=== PATIENT | female | born 1995 | race Two or more races ===

== ENCOUNTER 2016-05-12 20:30 | Emergency (ER) | payer OTHER ==
[2016-05-12] MEDS ORDERED: diphenhydrAMINE 50 MG/ML SDV IVPUSH ONE (20:42)
[2016-05-12] MEDS ORDERED: EPINEPHrine 1:1000 1 MG/ML SDV IM ONE (20:42)
[2016-05-12] MEDS ORDERED: Sodium Chloride 0.9% 10 ML Syringe FLUSH PRN (20:42)
[2016-05-12] MEDS ORDERED: methylPREDNISolone Sodium Succinate 40 MG/1 ML SDV IVPUSH ONE (20:43)
--- NOTE | 2016-05-12 20:47 | EDM.PDOC ---
ED HPI Allergic Reaction - General Chief Complaint: Allergic Reaction Stated Complaint: ALLERGIC REACTION HIVES KNOT IN THROAT Time Seen by Provider: 05/12/16 20:35 Source: Reports: Patient, RN notes reviewed History Limitations: Reports: No limitations - History of Present Illness INITIAL COMMENTS - FREE TEXT/NARRATIVE: Brought in by boyfriend Chief complaint Allergic reaction HPI 20-year-old female with history. Allergies, but now her was eating [place] food , onset of some hives on her arms and the feeling of a lump in her throat, concerned that she may be having allergic reaction. Her last exposure to pay about her was several years ago. Has had to stay overnight for allergic reaction to the hospital in the past. Does not have EpiPen Did take Benadryl children's orally prior to arrival. No hoarseness No cough no wheezing No recent infection or cold - Related Data Allergies/ADRs: Allergies Allergy/AdvReac Type Severity Reaction Status Date / Time amoxicillin Allergy Hives Verified 09/15/15 16:53 peanut Allergy Hives Verified 05/12/16 20:37 Penicillins Allergy Hives Verified 09/15/15 16:53 Home Meds: Home Meds Albuterol [Proair HFA] 2 puff INH ASDIRECTED PRN 03/06/14 [History] Past Medical History - Past Health History Medical/Surgical History: Denies Medical/Surgical History Respiratory History: Reports: Asthma Musculoskeletal History: Reports: Fracture - Past Surgical History HEENT Surgical History: Reports: Tonsillectomy Other HEENT Surgeries/Procedures: plactic surgery to face d/t dog bite Social & Family History - Family History Family Medical History: Unobtainable - Tobacco Use Smoking Status *Q: Light Tobacco Smoker Years of Tobacco use: 5 Packs/Tins Daily: 0.5 Second Hand Smoke Exposure: Yes - Alcohol Use Days Per Week of Alcohol Use: 1 Number of Drinks Per Day: 2 Total Drinks Per Week: 2 - Recreational Drug Use Recreational Drug Use: No Drug Use in Last 12 Months: Yes Recreational Drug Type: Reports: Methamphetamine, Xanax Recreational Drug Use Frequency: Daily Recreational Drug Last Use: 9 months ago ED ROS ALLERGIC REACTION - Review of Systems Review Of Systems: See Below Constitutional: Reports: no symptoms HEENT: Reports: Other (Lump in throat feeling). Denies: Ear pain, Rhinitis, Throat pain Respiratory: Denies: Shortness of Breath, Wheezing, Cough Cardiovascular: Reports: No symptoms Endocrine: Reports: no symptoms GI/Abdominal: Reports: No symptoms : Reports: no symptoms Skin: Reports: urticaria Neurological: Reports: No Symptoms Psychiatric: Reports: No symptoms Immunologic: Reports: food allergy (Peanuts and peanut butter) ED EXAM GENERAL NO PERIP PULSE - Physical Exam Exam: See Below Exam Limited By: No limitations General Appearance: alert, anxious, mild distress, other (Mild tachycardia otherwise vital signs normalNo difficulty speaking) Eye Exam: bilateral eye: normal inspection Ears: normal external exam, normal canal, hearing grossly normal, normal TMs Nose: normal inspection, normal mucosa Throat/Mouth: Normal inspection, Normal lips, Normal teeth, Normal gums, Normal oropharynx, Normal voice Head: atraumatic, normocephalic Neck: normal inspection, supple, non-tender, full range of motion. No: lymphadenopathy (R), lymphadenopathy (L) Respiratory/Chest: no respiratory distress, lungs clear, normal breath sounds, no accessory muscle use, chest non-tender. No: rhonchi, wheezing Cardiovascular: normal peripheral pulses, regular rate, rhythm, tachycardia GI/Abdominal: normal bowel sounds, soft, non tender Extremities: normal inspection Neurological: alert, oriented, no motor/sensory deficits Skin Exam: Warm, Dry, Normal color, Other (A few scattered urticarial-like lesions on the upper extremities) Lymphatic: no adenopathy Course - Vital Signs Last Recorded V/S: Last Vital Signs Temp 37.0 C 05/12/16 20:36 Pulse 91 05/12/16 21:44 Resp 18 05/12/16 20:36 BP 108/62 05/12/16 21:44 Pulse Ox 96 05/12/16 21:44 - Orders/Labs/Meds Orders: Active Orders 24 hr Category Date Time Status Sodium Chloride 0.9% [Saline Flush] Med 05/12/16 20:42 Active 10 ml FLUSH ASDIRECTED PRN Saline Lock Insert [OM.PC] Stat Oth 05/12/16 20:42 Ordered Medication Orders Sodium Chloride (Saline Flush) 10 ml FLUSH ASDIRECTED PRN PRN Reason: Keep Vein Open Last Admin: 05/12/16 21:01 Dose: 10 ml Meds: Medications Generic Name Dose Route Start Last Admin Trade Name Freq PRN Reason Stop Dose Admin Sodium Chloride 10 ml 05/12/16 20:42 05/12/16 21:01 Saline Flush FLUSH 10 ml ASDIRECTED PRN Administration Keep Vein Open Discontinued Medications Generic Name Dose Route Start Last Admin Trade Name Wilbert PRN Reason Stop Dose Admin Diphenhydramine HCl 50 mg 05/12/16 20:42 05/12/16 21:06 Benadryl IVPUSH 05/12/16 20:43 50 mg ONETIME ONE Administration Epinephrine HCl 0.3 mg 05/12/16 20:42 05/12/16 21:01 Adrenalin 1:1000 IM 05/12/16 20:43 0.3 mg ONETIME ONE Administration Methylprednisolone Sodium Succinate 40 mg 05/12/16 20:43 05/12/16 21:06 Solu-Medrol IVPUSH 05/12/16 20:44 40 mg ONETIME ONE Administration - Re-Assessments/Exams Free Text/Narrative Re-Assessment/Exam: 05/12/16 20:46 20-year-old female with known peanut allergy, presenting one hour after eating [place]ian food, having had some hives on her forearms and the feeling of lump in her throat. Voice is normal and exam shows little else, however she has had serious reactions in the past. Saline lock, Benadryl 50 mg IV, Solu-Medrol 40 mg IV and epinephrine 0.3 mg IM Observation 05/12/16 22:05 Improve with the above treatment Ready for discharge Departure - Departure Time of Disposition: 22:05 Disposition: Home, Self-Care 01 Condition: good Clinical Impression: Allergic reaction to food Qualifiers: Encounter type: initial encounter Qualified Code(s): T78.1XXA - Other adverse food reactions, not elsewhere classified, initial encounter Instructions: Allergies Forms: ED Department Discharge Additional Instructions: Continue taking antihistamine such as Benadryl the hives keep recurring, they can occur for about 3 days after eating the food Get rechecked promptly if he develops shortness of breath, wheezing, worse or muffled voice, difficulty swallowing or troubles breathing - My Orders Last 24 Hours: My Active Orders 05/12/16 20:42 Sodium Chloride 0.9% [Saline Flush] 10 ml FLUSH ASDIRECTED PRN Saline Lock Insert [OM.PC] Stat - Assessment/Plan Last 24 Hours: My Active Orders 05/12/16 20:42 Sodium Chloride 0.9% [Saline Flush] 10 ml FLUSH ASDIRECTED PRN Saline Lock Insert [OM.PC] Stat
[2016-05-12 21:45] VITALS: BP 108/62
== END 2016-05-12 22:20 | disposition home or self-care (01) ==
LOC: JP.ED 20:30
DX: L50.9 Urticaria, unspecified (principal); T78.1XXA Other adverse food reactions, not elsewhere classified, initial encounter; J45.909 Unspecified asthma, uncomplicated; F17.210 Nicotine dependence, cigarettes, uncomplicated; Z98.890 Other specified postprocedural states; Z88.0 Allergy status to penicillin; Z88.1 Allergy status to other antibiotic agents; Z91.010 Allergy to peanuts
CPT/HCPCS: 96374; 96375; 99283; J0171; J1200; J2920; J7050

== ENCOUNTER 2016-05-13 22:30 | Emergency (ER) | payer OTHER ==
[2016-05-13 22:44] VITALS: BP 188/107
[2016-05-13] MEDS ORDERED: methylPREDNISolone Sodium Succinate 125 MG/2 ML SDV IM ONE (23:20)
--- NOTE | 2016-05-13 23:27 | EDM.PDOC ---
ED HPI GENERAL MEDICAL PROBLEM - General Chief Complaint: ENT Problem Stated Complaint: ALLERGIC REACTION Time Seen by Provider: 05/13/16 22:45 Source of Information: Reports: Patient History Limitations: Reports: No limitations - History of Present Illness INITIAL COMMENTS - FREE TEXT/NARRATIVE: throat pain; this is a 20 year old female who was seen in ER yesterday for allergic reaction to peanuts. Tonight while sitting on cough, felt her throat swell up, she reports felling like an inverts "T" in her box apple, if she had one. feeling itchy. 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) - Related Data Allergies Allergy/AdvReac Type Severity Reaction Status Date / Time amoxicillin Allergy Hives Verified 09/15/15 16:53 egg Allergy Rash Verified 05/13/16 22:46 peanut Allergy Hives Verified 05/12/16 20:37 Penicillins Allergy Hives Verified 09/15/15 16:53 Home Meds: Home Meds Methocarbamol [Methocarbamol] 500 mg PO QID PRN 05/12/16 [History] Ibuprofen [Motrin] 600 - 800 mg PO QID PRN 05/13/16 [History] Past Medical History - Past Health History Medical/Surgical History: Denies Medical/Surgical History Respiratory History: Reports: Asthma Musculoskeletal History: Reports: Fracture Neurological History: Reports: Concussion Dermatologic History: Reports: Eczema - Infectious Disease History Infectious Disease History: Reports: Chicken pox - Past Surgical History HEENT Surgical History: Reports: Tonsillectomy Other HEENT Surgeries/Procedures: plactic surgery to face d/t dog bite Social & Family History - Family History Family Medical History: Unobtainable - Tobacco Use Smoking Status *Q: Current Every Day Smoker Years of Tobacco use: 4 Packs/Tins Daily: 0.5 Second Hand Smoke Exposure: Yes - Caffeine Use Caffeine Use: Reports: Coffee, Energy drinks, Soda - Alcohol Use Days Per Week of Alcohol Use: 1 Number of Drinks Per Day: 2 Total Drinks Per Week: 2 - Recreational Drug Use Recreational Drug Use: No Drug Use in Last 12 Months: Yes Recreational Drug Type: Reports: Methamphetamine, Xanax Recreational Drug Use Frequency: Daily Recreational Drug Last Use: 9 months ago - Living Situation & Occupation Living situation: Reports: with significant other Occupation: employed ED ROS GENERAL - Review of Systems Review Of Systems: See Below Constitutional: Reports: no symptoms HEENT: Reports: Throat pain, Throat swelling Respiratory: Reports: No Symptoms Cardiovascular: Reports: No symptoms Endocrine: Reports: no symptoms GI/Abdominal: Reports: No symptoms : Reports: no symptoms Musculoskeletal: Reports: no symptoms Skin: Reports: no symptoms Neurological: Reports: No Symptoms Psychiatric: Reports: No symptoms Hematologic/Lymphatic: Reports: no symptoms Immunologic: Reports: food allergy, seasonal allergy ED EXAM, GENERAL - Physical Exam Exam: See Below Exam Limited By: No limitations General Appearance: alert, WD/WN, no apparent distress Eye Exam: bilateral eye: PERRL Ears: normal external exam, normal canal, hearing grossly normal, normal TMs Ear Exam: bilateral ear: auricle normal, canal normal, TM normal Nose: normal inspection, normal mucosa, no blood Throat/Mouth: Normal inspection, Normal lips, Normal teeth, Normal gums, Normal oropharynx, Normal voice, No airway compromise Head: atraumatic, normocephalic Neck: normal inspection, supple, non-tender, full range of motion, other (no lymphadenapathy is noted to neck.) Respiratory/Chest: no respiratory distress, lungs clear, normal breath sounds, no accessory muscle use, chest non-tender Cardiovascular: normal peripheral pulses, regular rate, rhythm, no edema, no JVD , no murmur, no rub Extremities: normal inspection, normal range of motion, non-tender, normal capillary refill, no pedal edema Neurological: alert, oriented, normal cognition, normal gait, normal reflexes, no motor/sensory deficits Psychiatric: normal affect, normal mood Skin Exam: Warm Lymphatic: no adenopathy Course - Vital Signs Last Recorded V/S: Last Vital Signs Temp 37.1 C 05/13/16 22:49 Pulse 128 H 05/13/16 22:49 Resp 22 H 05/13/16 22:49 BP 188/107 H 05/13/16 22:49 Pulse Ox 98 05/13/16 22:49 - Orders/Labs/Meds Meds: Medications Discontinued Medications Generic Name Dose Route Start Last Admin Trade Name Freq PRN Reason Stop Dose Admin Methylprednisolone Sodium Succinate 125 mg 05/13/16 23:20 05/13/16 23:25 Solu-Medrol IM 05/13/16 23:21 125 mg ONETIME ONE Administration Departure - Departure Time of Disposition: 23:38 Disposition: Home, Self-Care 01 Condition: good Clinical Impression: Allergic reaction to food Qualifiers: Encounter type: subsequent encounter Qualified Code(s): T78.1XXD - Other adverse food reactions, not elsewhere classified, subsequent encounter Instructions: Allergies, [id number] Referrals: Abhinav Cuevas MD [Primary Care Provider] - Forms: ED Department Discharge Care Plan Goals: Allergic reaction to food -script; steroid pills to be taken as directed script; eppi pen as directed for signs of allergic reaction; throat swelling, cough, shortness of breath -sick slip for work advised to rest, push fluids, take medication as directed return to ER or call 911 for sudden onset of shortness of breath, chest tightness, cough, throat pain or swelling. follow up with Primary Care for recheck in 3 to 5 days. - Problem List & Annotations (1) Allergic reaction to food SNOMED Code(s): 404155956 Code(s): T78.1XXA - H ADVERSE FOOD REACTIONS, NOT ELSEWHERE CLASSIFIED, INIT Status: Acute Priority: Medium Current Visit: Yes Qualifiers: Encounter type: subsequent encounter Qualified Code(s): T78.1XXD - Other adverse food reactions, not elsewhere classified, subsequent encounter - Problem List Review Problem List Initiated/Reviewed/Updated: Yes - Assessment/Plan Plan: Allergic reaction to food -script; steroid pills to be taken as directed script; eppi pen as directed for signs of allergic reaction; throat swelling, cough, shortness of breath -sick slip for work advised to rest, push fluids, take medication as directed return to ER or call 911 for sudden onset of shortness of breath, chest tightness, cough, throat pain or swelling. follow up with Primary Care for recheck in 3 to 5 days.
== END 2016-05-13 23:54 | disposition home or self-care (01) ==
LOC: JP.ED 22:30
DX: R22.1 Localized swelling, mass and lump, neck (principal); T78.1XXD Other adverse food reactions, not elsewhere classified, subsequent encounter; F17.210 Nicotine dependence, cigarettes, uncomplicated; Z88.0 Allergy status to penicillin; Z88.1 Allergy status to other antibiotic agents; Z91.010 Allergy to peanuts; Z91.012 Allergy to eggs; Z98.890 Other specified postprocedural states
CPT/HCPCS: 96372; 99283; J2930

== ENCOUNTER 2016-11-26 07:22 | Day surgery (SDC) | payer OTHER ==
[2016-11-26] MEDS ORDERED: Propofol 200 MG/20 ML SDV ONE (07:50)
[2016-11-26] MEDS ORDERED: Midazolam 1 MG/ML 2 ML SDV ONE (07:50)
[2016-11-26] MEDS ORDERED: fentaNYL 100 MCG/2 ML SDV ONE (07:50)
[2016-11-26] MEDS ORDERED: Dextrose 5%-Lactated Ringers 1,000 ML IV SCH (08:00)
[2016-11-26] MEDS ORDERED: Glycopyrrolate 0.2 MG/ML 2 ML SDV IVPUSH ONE (08:45)
[2016-11-26] MEDS ORDERED: Pantoprazole 40 MG Vial IVPUSH ONE (09:17)
[2016-11-26 10:44] VITALS: BP 121/78
--- NOTE | 2016-11-30 12:51 | OR ---
DATE OF PROCEDURE: 11/26/2016 PREOPERATIVE DIAGNOSES: Epigastric pain and nausea with history of hematemesis. POSTOPERATIVE DIAGNOSIS: Mild antral gastritis. OPERATIVE PROCEDURE: Esophagogastroduodenoscopy with biopsies of antrum for CLOtest. ANESTHESIA: IV sedation. INDICATION FOR PROCEDURE: This is a 21-year-old presenting with a history of some epigastric discomfort, nausea, as well as some episodes of hematemesis. Plan is to proceed with an upper GI endoscopy with biopsies as indicated. Potential risks of the procedure including bleeding and perforation were discussed, and the patient wishes to proceed. DETAILS OF PROCEDURE: The patient was taken to the operating room, placed in a left lateral decubitus position. IV sedation was administered, after which the upper GI endoscope was passed orally through the length of the esophagus and into the stomach with retroflexion view of the fundus, and thereafter through the pyloric channel into the junction of the third and fourth portions of the duodenum. Findings included a normal hypopharynx, larynx, upper esophageal sphincter, and esophageal body. At the EG junction, there was no hiatal hernia. No significantly gross inflammation. Within the stomach, there were some mild redness in the antrum. This was associated with some edema of the mucosa within the antrum, especially pre-pyloric region and friability of it as well. Presently, no erosions or ulcers were seen. The pyloric channel and visualized portion of the duodenum were unremarkable. At this point, biopsies were obtained from the antrum and sent for CLOtest for H. pylori. Minimal bleeding from the biopsy sites was seen and the procedure then concluded. The patient was taken to the recovery room in satisfactory condition. The patient has been on omeprazole now for roughly a week and it would appear most likely that the findings which were then seen prior to the omeprazole likely healing in the patient with only mild gastritis at this time. Plan will be the patient to continue the omeprazole at the present dose and follow up with Douglas Baeza PA-C in [facility] in about 2 weeks. If the CLOtest is positive, she will be contacted and one of the anti H. pylori regimens initiated. Jose Juan Mann MD /[id number]
== END 2016-11-26 10:40 | disposition home or self-care (01) ==
LOC: JP.SDS 07:22
PROVIDERS: ATTEND Surgery
DX: K29.50 Unspecified chronic gastritis without bleeding (principal); J45.909 Unspecified asthma, uncomplicated; Z88.0 Allergy status to penicillin; Z88.1 Allergy status to other antibiotic agents; Z91.010 Allergy to peanuts; Z91.012 Allergy to eggs
CPT/HCPCS: 43239; 87081; C9113; J2250; J2704; J3010; J7042; J3490

== ENCOUNTER 2017-04-03 04:05 | Emergency (ER) | payer OTHER ==
[2017-04-03 04:10] VITALS: BP 159/108
[2017-04-03] MEDS ORDERED: Lidocaine 1% with EPINEPHrine 1:100,000 50 ML MDV SUBCUT STA (04:29)
[2017-04-03] MEDS ORDERED: Bacitracin Oint 1 GM U/D Packet TOP ONE (04:29)
[2017-04-03] MEDS ORDERED: Diphtheria,Pertussis(Acell),Tetanus Vaccine 0.5 ML SDV IM ONE (05:06)
--- NOTE | 2017-04-03 05:08 | EDM.PDOC ---
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) Left Inner Forearm Pain Score (Numeric/FACES): 4 - Related Data Allergies Allergy/AdvReac Type Severity Reaction Status Date / Time amoxicillin Allergy Hives Verified 04/03/17 04:27 egg Allergy Rash Verified 04/03/17 04:27 peanut Allergy Hives Verified 04/03/17 04:27 Penicillins Allergy Hives Verified 04/03/17 04:27 Home Meds: Home Meds Methocarbamol [Methocarbamol] 500 - 1,000 mg PO QID PRN 05/12/16 [History] Ibuprofen [Motrin] 600 - 800 mg PO QID PRN 05/13/16 [History] Albuterol [IJD: Albuterol HFA] 2 puff INH Q4H PRN 11/25/16 [History] Omeprazole 20 mg PO DAILY 11/25/16 [History] Past Medical History Respiratory History: Reports: Asthma Gastrointestinal History: Reports: GERD Musculoskeletal History: Reports: Fracture Neurological History: Reports: Concussion Endocrine/Metabolic History: Reports: Obesity/BMI 30+ Dermatologic History: Reports: Eczema - Infectious Disease History Infectious Disease History: Reports: Chicken Pox - Past Surgical History HEENT Surgical History: Reports: Tonsillectomy Other HEENT Surgeries/Procedures: plactic surgery to face d/t dog bite Social & Family History - Family History Family Medical History: Noncontributory - Tobacco Use Smoking Status *Q: Current Every Day Smoker Years of Tobacco use: 5 Packs/Tins Daily: 0.5 Used Tobacco, but Quit: No Second Hand Smoke Exposure: Yes - Caffeine Use Caffeine Use: Reports: Coffee, Energy Drinks, Soda - Alcohol Use Days Per Week of Alcohol Use: 4 Number of Drinks Per Day: 3 Total Drinks Per Week: 12 - Recreational Drug Use Recreational Drug Use: No Drug Use in Last 12 Months: Yes Recreational Drug Type: Reports: Methamphetamine, Xanax Recreational Drug Use Frequency: Daily Recreational Drug Last Use: 9 months ago - Living Situation & Occupation Living situation: Reports: with Significant Other Occupation: Employed ED ROS GENERAL - Review of Systems Review Of Systems: See Below Musculoskeletal: Reports: No Symptoms Skin: Reports: Wound Neurological: Reports: No Symptoms ED EXAM, SKIN/RASH Exam: See Below Text/Narrative:: Examination of the left forearm I don't appreciate any functional complaints she has full range of motion all digits radial pulses +2 she has a 5 cm laceration completely through the dermis into the subcutaneous tissue on the inner aspect of the forearm Exam Limited By: No Limitations General Appearance: Alert, WD/WN, No Apparent Distress Respiratory/Chest: No Respiratory Distress ED SKIN PROCEDURES - Laceration/Wound Repair Arm Lac/Wound length In cm: 5 Appearance: Subcutaneous Distal NVT: Neuro & Vascular Intact, No Tendon Injury Anesthetic Type: Local Local Anesthesia - Lidocaine (Xylocaine): 1% with EPI Local Anesthetic Volume: 2cc Skin Prep: Chlorhexidine (Hibiciens), Saline Saline Irrigation (cc's): 30 Exploration/Debridement/Repair: Wound Explored, In a Bloodless Field, Explored to Base Closed with: Sutures Suture Size: 4-0 # of Sutures: 9 Suture Type: Nylon, Running Sterile Dressing Applied: Nurse Tetanus Status Addressed: Yes (2006) Complications: No Course - Vital Signs Last Recorded V/S: Last Vital Signs Temp 98 F 04/03/17 04:06 Pulse 129 H 04/03/17 04:06 Resp 22 H 04/03/17 04:06 BP 159/108 H 04/03/17 04:06 Pulse Ox 98 04/03/17 04:06 - Orders/Labs/Meds Meds: Medications Discontinued Medications Generic Name Dose Route Start Last Admin Trade Name Wilbert PRN Reason Stop Dose Admin Bacitracin 1 dose 04/03/17 04:29 Bacitracin Oint 1 Gm TOP 04/03/17 04:30 ONETIME ONE Lidocaine/Epinephrine 20 ml 04/03/17 04:29 Xylocaine 1% With Epinephrine 1:100,000 SUBCUT 04/03/17 04:30 NOW STA Departure - Departure Time of Disposition: 05:07 Disposition: Home, Self-Care 01 Condition: Good Clinical Impression: Laceration - Discharge Information Referrals: Abhinav Cuevas MD [Primary Care Provider] - Additional Instructions: Suture removal in 10 days, follow wound care instruction sheet, follow-up with primary care or emergency department for suture removal call return to the emergency department with worsening of symptoms - Assessment/Plan Plan: Assessment Acuity = acute Site and laterality = 5 cm laceration left forearm completely through the dermis into the subcutaneous tissue Etiology = secondary trauma with a knife Manifestations = none Location of injury = Home Lab values = none Plan Suture removal in 10 days, follow wound care instruction sheet return to primary or ED for suture removal This note was dictated using [employer] voice recognition software please call with any questions on syntax or delores.
== END 2017-04-03 05:46 | disposition home or self-care (01) ==
LOC: JP.ED 04:05
DX: S51.812A Laceration without foreign body of left forearm, initial encounter (principal); Z23 Encounter for immunization; F17.210 Nicotine dependence, cigarettes, uncomplicated; J45.909 Unspecified asthma, uncomplicated; K21.9 Gastro-esophageal reflux disease without esophagitis; Z88.0 Allergy status to penicillin; Z88.1 Allergy status to other antibiotic agents; Z91.010 Allergy to peanuts; Z91.012 Allergy to eggs; W26.0XXA Contact with knife, initial encounter; Z79.899 Other long term (current) drug therapy
CPT/HCPCS: 12002; 90471; 90715; 99283-25

== ENCOUNTER 2017-10-13 03:19 | Emergency (ER) | payer OTHER | END 2017-10-13 03:30 | disposition left against medical advice (07) | LOC: JP.ED 03:19 | DX: Z53.21 Procedure and treatment not carried out due to patient leaving prior to being seen by health care provider (principal) ==

== ENCOUNTER 2018-07-04 01:21 | Emergency (ER) | payer OTHER ==
[2018-07-04 01:38] VITALS: BP 124/74
[2018-07-04] MEDS ORDERED: EPINEPHrine 1 MG/ML SDV IM ONE (01:39)
[2018-07-04] MEDS ORDERED: predniSONE 20 MG Tab PO STA (01:39)
--- NOTE | 2018-07-04 01:42 | EDM.PDOC ---
ED HPI GENERAL MEDICAL PROBLEM - General Chief Complaint: Allergic Reaction Stated Complaint: RECATION TO PEANUT BUTTER Time Seen by Provider: 07/04/18 01:38 Source of Information: Reports: Patient, RN Notes Reviewed History Limitations: Reports: No Limitations - History of Present Illness INITIAL COMMENTS - FREE TEXT/NARRATIVE: 23-year-old female presents emergency department today complaint allergic reaction. She has a known history of peanut allergy states she was exposed to bar that she did not know had pain about her inside of it she now is experiencing some shortness of breath with throat tightness and itching she did take 60 mg of Benadryl prior to presentation in the emergency department, has developed a rash on her trunk Treatments PRINCIPAL EXAMINER: Reports: Other (see below) Other Treatments PRINCIPAL EXAMINER: Drank some liquid benadryl - Related Data Allergies Allergy/AdvReac Type Severity Reaction Status Date / Time amoxicillin Allergy Hives Verified 07/04/18 01:31 egg Allergy Rash Verified 07/04/18 01:31 peanut Allergy Hives Verified 07/04/18 01:31 Penicillins Allergy Hives Verified 07/04/18 01:31 Home Meds: Home Meds Ibuprofen [Motrin] 600 - 800 mg PO QID PRN 05/13/16 [History] Albuterol [IJD: Albuterol HFA] 2 puff INH Q4H PRN 11/25/16 [History] Omeprazole 20 mg PO DAILY 11/25/16 [History] metFORMIN [Glucophage] 500 mg PO DAILY 07/04/18 [History] Past Medical History Respiratory History: Reports: Asthma Gastrointestinal History: Reports: GERD Musculoskeletal History: Reports: Fracture Neurological History: Reports: Concussion Endocrine/Metabolic History: Reports: Obesity/BMI 30+ Dermatologic History: Reports: Eczema - Infectious Disease History Infectious Disease History: Reports: Chicken Pox - Past Surgical History HEENT Surgical History: Reports: Tonsillectomy Other HEENT Surgeries/Procedures: plactic surgery to face d/t dog bite Social & Family History - Family History Family Medical History: Noncontributory - Tobacco Use Smoking Status *Q: Current Every Day Smoker Years of Tobacco use: 10 Packs/Tins Daily: 0.5 Second Hand Smoke Exposure: No - Caffeine Use Caffeine Use: Reports: Soda - Recreational Drug Use Recreational Drug Use: No - Living Situation & Occupation Living situation: Reports: with Significant Other Occupation: Employed ED ROS ALLERGIC REACTION - Review of Systems Review Of Systems: See Below Constitutional: Reports: No Symptoms HEENT: Reports: Throat Pain, Throat Swelling Respiratory: Reports: Shortness of Breath GI/Abdominal: Reports: No Symptoms ED EXAM GENERAL NO PERIP PULSE - Physical Exam Exam: See Below Exam Limited By: No Limitations General Appearance: Alert, WD/WN, No Apparent Distress Throat/Mouth: Normal Inspection, Normal Lips, Normal Teeth, Normal Gums, Normal Oropharynx, Normal Voice, No Airway Compromise Head: Atraumatic, Normocephalic Neck: Normal Inspection, Supple, Non-Tender, Full Range of Motion Respiratory/Chest: No Respiratory Distress, Lungs Clear, Normal Breath Sounds, No Accessory Muscle Use, Chest Non-Tender Cardiovascular: Regular Rate, Rhythm, No Murmur Course - Vital Signs Last Recorded V/S: Last Vital Signs Temp 97.5 F 07/04/18 01:36 Pulse 126 H 07/04/18 01:36 Resp 14 07/04/18 01:36 BP 124/74 07/04/18 01:36 Pulse Ox 95 07/04/18 01:36 - Orders/Labs/Meds Meds: Medications Discontinued Medications Generic Name Dose Route Start Last Admin Trade Name Freq PRN Reason Stop Dose Admin Epinephrine HCl 0.3 mg 07/04/18 01:39 07/04/18 01:47 Adrenalin IM 07/04/18 01:40 0.3 mg ONETIME ONE Administration Prednisone 60 mg 07/04/18 01:39 07/04/18 01:47 Prednisone PO 07/04/18 01:40 60 mg NOW STA Administration Departure - Departure Time of Disposition: 02:39 Disposition: Home, Self-Care 01 Condition: Fair Clinical Impression: Allergic reaction Qualifiers: Encounter type: initial encounter Qualified Code(s): T78.40XA - Allergy, unspecified, initial encounter - Discharge Information Referrals: Abhinav Cuevas MD [Primary Care Provider] - Forms: ED Department Discharge Additional Instructions: Use the EpiPen as needed for any exposure to peanut source, Please followup with your primary care provider in 3-5 days if not better, please call return to the emergency department with worsening of symptoms. - Assessment/Plan Plan: Assessment Acuity = acute Site and laterality = allergic reaction Etiology = peanut allergy Manifestations = throat swelling now resolved Location of injury = Home Lab values = none Plan She had good improvement with the treatment provided in the emergency department prescription written for EpiPen follow-up primary care 3-5 days if not better This note was dictated using [employer] voice recognition software please call with any questions on syntax or grammar.
== END 2018-07-04 02:45 | disposition home or self-care (01) ==
LOC: JP.ED 01:21
DX: T78.1XXA Other adverse food reactions, not elsewhere classified, initial encounter (principal); R06.02 Shortness of breath; F17.210 Nicotine dependence, cigarettes, uncomplicated; K21.9 Gastro-esophageal reflux disease without esophagitis; J45.909 Unspecified asthma, uncomplicated; Z79.899 Other long term (current) drug therapy; Z91.018 Allergy to other foods; Z88.0 Allergy status to penicillin; Z88.1 Allergy status to other antibiotic agents; Z91.010 Allergy to peanuts
CPT/HCPCS: 96372; 99284; A9270; J0171